=== PATIENT | male | born 1995 | race African-American/Black ===

== ENCOUNTER 2025-05-14 06:35 | Emergency (ER) | payer MEDICAID, OTHER ==
[~2025-05-14] VITALS: Ht 193 cm; Wt 69.5 kg
--- NOTE | 2025-05-14 06:56 | ED.PDOC ---
Musculoskeletal HPI Comments This is a 29-year-old male who comes in with left hand pain primarily in the left thumb. States it he fell around 2:00 a.m. and since then he has had pain in that in in that extremity. States very painful with moving it. Denies any other injuries. Chief Complaint: Upper Extremity Time Seen by MD: 06:50 Reviewed Notes: Nurses Notes, Medications Allergies: Coded Allergies: NO KNOWN ALLERGIES (Unverified , 05/14/25) Home Meds Active Scripts Ibuprofen Micronized (Ibuprofen) 600 Mg Tab, 600 MG PO Q6HPRN PRN for 5 Days, #20 TAB Prov:CAROLYN GRIDER INTERNET MANAGER 05/14/25 Information Source: Patient Mode of Arrival: Ambulatory Past Medical History PAST MEDICAL HISTORY: Denies Social History Smoker: Non-Smoker Alcohol: Denies ETOH Use Drugs: Denies Drug Use Lives In: Home Musculoskeletal: reports: joint pain, joint swelling All Other Systems: Reviewed and Negative Physical Exam General Appearance: No Apparent Distress, Normal HEENT: Normal ENT Inspection, PERRL/EOMI, Pharynx Normal, TMs Normal Neck: Full Range of Motion, Normal Inspection, Supple Respiratory: Lungs Clear, No Respiratory Distress, Normal Breath Sounds Cardiovascular: Regular Rate/Rhythm Breast Exam: Deferred Gastrointestinal: Non Tender, Normal Bowel Sounds, Soft Genitalia: Deferred Pelvic: Deferred Rectal: Deferred Extremities: Tender (Left thumb with tenderness no obvious deformity good cap refill normal sensation) Neurologic: Alert, No Motor Deficits, Normal Mood Cerebellar Function: Normal Reflexes: Normal Skin: Dry, Warm Lymphatic: NOT DONE Was a procedure done? Was a procedure done?: No Differential Diagnosis EXT Differential Diagnosis: Fracture, Sprain, Dislocation X-Ray, Labs, Meds, VS Vital Signs Date Time Temp Pulse Resp B/P (MAP) Pulse Ox O2 Delivery O2 Flow Rate FiO2 05/14/25 06:40 98.3 74 20 108/67 99 98.3 X-Ray, Labs, Meds, VS Comment Patient seen and examined by me. Patient with a fall around 2:00 a.m. last night onto his left hand since then has pain when he moves his left thumb. Adal es any other injuries. I will order an x-ray of his left hand. X-ray showed no fracture. Patient will be placed in a thumb spica splint for comfort measures. He will be given a Motrin here as well as prescription to go home with. Stable for outpatient management. ORDERING PHYSICIAN: CAROLYN GRIDER PROCEDURE(s): LHAN - L HAND 3V XRAY REASON: left thumb injury ORDER NUMBER(s): [id number], ACCESSION NUMBER(s): [id number] EXAM: XY L HAND 3V XRAY HISTORY: left thumb injury COMPARISON: None TECHNIQUE: Three views of the left hand were performed. FINDINGS: No acute fracture or dislocation are identified about the left hand. No significant degenerative changes. Soft tissue swelling in the thumb. IMPRESSION: 1. No acute osseous abnormality. Time of 1ST Reevaluation: 07:43 Reevaluation 1ST: Improved Patient Education/Counseling: Diagnosis, Treatment, Prognosis, Need For Follow Up Family Education/Counseling: No Family Present Departure 1 Departure Time of Disposition: 07:43 Impression: Primary Impression: Sprain of left thumb Disposition: 01 HOME / SELF CARE / HOMELESS Condition: Good Additional Instructions: Use the splint at all times until pain is completely gone. Take the Motrin as needed for pain and swelling. Go home and ice and rest today If you still have discomfort after a week you need to follow up with your regular doctor for referral to Orthopedics e-Prescriptions Ibuprofen Micronized (Ibuprofen) 600 Mg Tab 600 MG PO Q6HPRN PRN for 5 Days, #20 TAB Prov: CAROLYN GRIDER 05/14/25 Discharged With: Self Critical Care Note Critical Care Time?: No Stability Stability form required: No CAROLYN GRIDER May 14, 2025 06:56
--- NOTE | 2025-05-14 07:38 | DVH ---
EXAM: XY L HAND 3V XRAY HISTORY: left thumb injury COMPARISON: None TECHNIQUE: Three views of the left hand were performed. FINDINGS: No acute fracture or dislocation are identified about the left hand. No significant degenerative benjie nges. Soft tissue swelling in the thumb. IMPRESSION: 1. No acute osseous abnormality.
[2025-05-14] MEDS ORDERED: IBUP1TAB5 PO (07:46)
[2025-05-14 07:53] VITALS: BP 113/43; PULSE 54; RESP 20; TEMP 98; O2SAT 95
[2025-05-14] MEDS: IBUPROFEN 600 MG TAB PO ONE (08:02)
== END 2025-05-14 08:07 | disposition home or self-care (01) ==
LOC: ER 06:35
DX: S63.602A Unspecified sprain of left thumb, initial encounter (principal); W19.XXXA Unspecified fall, initial encounter; Y93.89 Activity, other specified; Y92.89 Other specified places as the place of occurrence of the external cause; Y99.8 Other external cause status
CPT/HCPCS: 29125; 73130